=== PATIENT | female | born 1960 ===

== ENCOUNTER 2022-10-08 11:33 | Outpatient (CLI) | payer OTHER, SELFPAY ==
--- NOTE | 2022-10-08 11:52 | MM_ITS ---
WS: [id number] Bilateral screening 3D tomosynthesis digital mammogram, 10/08/2022 Clinical Data: SCREENING Comparison: 05/14/2016, 01/10/2014, 09/07/2007. Findings: The breast parenchymal pattern shows fibroglandular tissue. No spiculated masses or clustered calcifi cations are seen. There are no secondary signs of carcinoma. MM/[place] [id number] Impression: 1. Negative bilateral mammogram unchanged. 2. Recommend annual screening mammograms. BIRADS: 1-Negative FOLLOW UP: 1 Year Follow-up The CAD tool drawing checker was used.
== END 2022-10-08 11:34 | disposition home or self-care (01) ==
LOC: MOBLMAM 11:36 → RAD 11:46 → MOBLMAM 11:53
PROVIDERS: PCP Physician Assistant; Visit Provider Physician Assistant
DX: Z12.31 Encounter for screening mammogram for malignant neoplasm of breast (principal)
CPT/HCPCS: 77063; 77067

== ENCOUNTER → 2023-05-24 11:40 | Outpatient (BNVA) | payer OTHER, SELFPAY | PROVIDERS: PCP Physician Assistant; Visit Provider Nurse Practitioner | DX: M54.42 Lumbago with sciatica, left side; M62.830 Muscle spasm of back | CPT/HCPCS: 72100 ==

== ENCOUNTER 2024-12-28 08:46 | Outpatient (CLI) | payer OTHER, SELFPAY ==
--- NOTE | 2024-12-28 09:20 | MM_ITS ---
WS: [id number] BILATERAL 3D TOMOSYNTHESIS DIGITAL SCREENING MAMMOGRAPHY WITH CAD CLINICAL INFORMATION: screening HISTORY: Screening mammogram. No current complaints. COMPARISON: 2022 TECHNIQUE: Bilateral CC and MLO views. FINDINGS: Scattered fibroglandular densities bilaterally. Lucent centered calcification RIGHT breast. Small asymmetric density central LEFT breast measuring 4 mm. Recommend LEFT breast diagnostic mammography and ultrasound if persistent. This is in the lateral breast on tomography Unremarkable RIGHT breast MM/MM [facility] tomosynthesis [id number] IMPRESSION: DENSITY: There are scattered areas of fibroglandular density. BI-RADS: 0 - Incomplete: Need additional imaging evaluation. FOLLOW UP: Need Additional Imaging Recommend LEFT breast diagnostic mammography and ultrasound if persistent
== END 2024-12-28 08:47 | disposition home or self-care (01) ==
LOC: RAD 08:48
DX: Z12.31 Encounter for screening mammogram for malignant neoplasm of breast (principal); R92.323 Mammographic fibroglandular density, bilateral breasts; R92.1 Mammographic calcification found on diagnostic imaging of breast; N64.89 Other specified disorders of breast
CPT/HCPCS: 77063; 77067

== ENCOUNTER 2025-01-11 13:32 | Outpatient (CLI) | payer OTHER, SELFPAY ==
--- NOTE | 2025-01-11 13:45 | MM_ITS ---
WS: [id number] LEFT 3D TOMOSYNTHESIS DIGITAL MAMMOGRAPHY WITH CAD CLINICAL INFORMATION: abnormal mammo, left HISTORY: Additional views COMPARISON: 2024 TECHNIQUE: 3 views of the left breast were obtained. FINDINGS: Scattered fibroglandular densities of the left breast. Previously described asymmetric density in the central LEFT breast measuring 4 mm compresses out today on the spot compression views. Recommend return to annual screening mammography. No suspicious focal mass, asymmetry, calcifications, or architectural distortion. MM/MM diag LT tomosynthesis [id number] IMPRESSION: DENSITY: There are scattered areas of fibroglandular density. BI-RADS: 1 - Negative. FOLLOW UP: 1 Year Follow-up Recommend return to annual screening mammography.
== END 2025-01-11 13:33 | disposition home or self-care (01) ==
LOC: RAD 13:32
DX: Z12.31 Encounter for screening mammogram for malignant neoplasm of breast (principal); R92.8 Other abnormal and inconclusive findings on diagnostic imaging of breast; R92.323 Mammographic fibroglandular density, bilateral breasts; N64.89 Other specified disorders of breast
CPT/HCPCS: 77061; G0279